=== PATIENT | male | born 1965 | race Caucasian/White ===

== ENCOUNTER 2018-07-06 06:36 | Emergency (ER) | payer SELFPAY ==
[~2018-07-06] VITALS: Ht 167.6 cm; Wt 64.3 kg
[2018-07-06 07:19] LABS: BASO # 0.1 x10^3/uL (0.0-0.2); BASO % 1 % (0-3); EOS # 0.1 x10^3/uL (0.0-0.7); EOS % 1 % (0-3); HEMATOCRIT 43.7 % (39.0-53.0); HEMOGLOBIN 15.6 g/dL (13.0-17.5); LYMPH # 2.3 x10^3/uL (1.0-4.8); LYMPH % 29 % (24-48); MEAN CORPUSCULAR HEMOGLOBIN 34 pg (25-35); MEAN CORPUSCULAR HGB CONC 36 g/dL (31-37); MEAN CORPUSCULAR VOLUME 96 fL (79-100); MONO # 0.5 x10^3/uL (0.0-1.1); MONO % 6 % (0-9); NEUT # 5.1 x10^3uL (1.8-7.7); NEUT % 64 % (31-73); PLATELET COUNT 119 x10^3/uL (140-400); RED BLOOD COUNT 4.56 x10^6/uL (4.30-5.70); RED CELL DISTRIBUTION WIDTH 12.1 % (11.5-14.5); WHITE BLOOD COUNT 8.1 x10^3/uL (4.0-11.0)
--- NOTE | 2018-07-06 07:32 | RAD ---
CT head without contrast TECHNIQUE: [address] imaging skull base to vertex. HISTORY: Numbness in left upper extremity. FINDINGS: No intracranial hemorrhage, mass, hydrocephalus, extra-axial fluid collections or infarction. No acute ischemic change. Orbits, paranasal sinuses, mastoids and bones are unremarkable. IMPRESSION: No acute intracranial CT abnormality. Exposure: One or more of the following individualized dose reduction techniques were utilized for this examination: 1. Automated exposure control 2. Adjustment of the mA and/or kV according to patient size 3. Use of iterative reconstruction technique Electronically signed by: Lb Guzman MD (07/06/2018 7:30 AM) [facility]
--- NOTE | 2018-07-06 07:42 | RAD ---
Chest, 2 views, 07/06/2018: HISTORY: Chest pain, left arm numbness The heart size and pulmonary vascularity are normal. No pulmonary infiltrate is seen. There is no evidence of pleural fluid. Old rib fractures are present in the left. IMPRESSION: No acute cardiopulmonary abnormality is detected. Electronically signed by: Naif Mercado MD (07/06/2018 7:39 AM) [facility]
[2018-07-06 07:45] LABS: ALBUMIN/GLOBULIN RATIO 1.2 (1.0-1.7); CALCIUM 8.9 mg/dL (8.5-10.1); CREATININE 0.9 mg/dL (0.7-1.3); GFR 88.3; MAGNESIUM 2.1 mg/dL (1.8-2.4); POTASSIUM 3.3 mmol/L (3.5-5.1); TOTAL BILIRUBIN 0.4 mg/dL (0.2-1.0); TOTAL PROTEIN 7.4 g/dL (6.4-8.2)
[2018-07-06] MEDS ORDERED: THIA100T8 PO (08:01)
--- NOTE | 2018-07-06 08:01 | PHYS DOC ---
Past History Past Medical History: No Pertinent History Past Surgical History: No Surgical History Smoking: Cigarettes, Less than 1pk/day Alcohol Use: Heavy Additional Alcohol Information: states he drinks several beers a day Drug Use: None Adult General Chief Complaint Chief Complaint: numbness of left arm [facility] HPI Patient is a 52-year-old male patient with complaining of left upper extremity numbness since he woke up at 7 AM today as a constant problem without weakness, headache, nausea and vomiting. Patient states he has had intermittent episodes of chest pain 3 days ago in left side of chest without radiation, shortness of breath, dizziness, palpitation, nausea and vomiting. Patient said the pain lasts about couple minutes and repeated several times but did not have any chest pain today. Review of Systems Review of Systems Constitutional: Denies fever or chills [] Eyes: Denies change in visual acuity, redness, or eye pain [] HENT: Denies nasal congestion or sore throat [] Respiratory: Denies cough or shortness of breath [] Cardiovascular: No additional information not addressed in HPI [] GI: Denies abdominal pain, nausea, vomiting, bloody stools or diarrhea [] : Denies dysuria or hematuria [] Musculoskeletal: Denies back pain or joint pain [] Integument: Denies rash or skin lesions [] Neurologic: Denies headache, focal weakness, reports sensory changes [] Endocrine: Denies polyuria or polydipsia [] All other systems were reviewed and found to be within normal limits, except as documented in this note. Allergies Allergies Allergies Coded Allergies Type Severity Reaction Last Updated Verified No Known Drug Allergies 07/06/18 No Physical Exam Physical Exam Constitutional: Well developed, well nourished, no acute distress, non-toxic appearance. [] HENT: Normocephalic, atraumatic, bilateral external ears normal, oropharynx moist, no oral exudates, nose normal. [] Eyes: PERRLA, EOMI, conjunctiva normal, no discharge. [] Neck: Normal range of motion, no tenderness, supple, no stridor. [] Cardiovascular:Heart rate regular rhythm, no murmur [] Lungs & Thorax: Bilateral breath sounds clear to auscultation [] Abdomen: Bowel sounds normal, soft, no tenderness, no masses, no pulsatile masses. [] Skin: Warm, dry, no erythema, no rash. [] Back: No tenderness, no CVA tenderness. [] Extremities: No tenderness, no cyanosis, no clubbing, ROM intact, no edema. [] Neurologic: Alert and oriented X 3, normal motor function, normal sensory function, no focal deficits noted, no paresthesia and evaluation. [] Psychologic: Affect normal, judgement normal, mood normal. [] Current Patient Data Vital Signs Vital Signs Date Time Temp Pulse Resp B/P (MAP) Pulse Ox O2 Delivery O2 Flow Rate FiO2 07/06/18 07:17 91 20 164/95 (118) 97 Room Air 07/06/18 06:45 98.5 Lab Results Laboratory Tests Test 07/06/18 07:00 White Blood Count 8.1 x10^3/uL (4.0-11.0) Red Blood Count 4.56 x10^6/uL (4.30-5.70) Hemoglobin 15.6 g/dL (13.0-17.5) Hematocrit 43.7 % (39.0-53.0) Mean Corpuscular Volume 96 fL (79-100) Mean Corpuscular Hemoglobin 34 pg (25-35) Mean Corpuscular Hemoglobin Concent 36 g/dL (31-37) Red Cell Distribution Width 12.1 % (11.5-14.5) Platelet Count 119 x10^3/uL (140-400) L Neutrophils (%) (Auto) 64 % (31-73) Lymphocytes (%) (Auto) 29 % (24-48) Monocytes (%) (Auto) 6 % (0-9) Eosinophils (%) (Auto) 1 % (0-3) Basophils (%) (Auto) 1 % (0-3) Neutrophils # (Auto) 5.1 x10^3uL (1.8-7.7) Lymphocytes # (Auto) 2.3 x10^3/uL (1.0-4.8) Monocytes # (Auto) 0.5 x10^3/uL (0.0-1.1) Eosinophils # (Auto) 0.1 x10^3/uL (0.0-0.7) Basophils # (Auto) 0.1 x10^3/uL (0.0-0.2) Sodium Level 144 mmol/L (136-145) Potassium Level 3.3 mmol/L (3.5-5.1) L Chloride Level 105 mmol/L (98-107) Carbon Dioxide Level 25 mmol/L (21-32) Anion Gap 14 (6-14) Blood Urea Nitrogen 9 mg/dL (8-26) Creatinine 0.9 mg/dL (0.7-1.3) Estimated GFR (Cockcroft-Gault) 88.3 BUN/Creatinine Ratio 10 (6-20) Glucose Level 95 mg/dL (70-99) Calcium Level 8.9 mg/dL (8.5-10.1) Magnesium Level 2.1 mg/dL (1.8-2.4) Total Bilirubin 0.4 mg/dL (0.2-1.0) Aspartate Amino Transferase (AST) 20 U/L (15-37) Alanine Aminotransferase (ALT) 26 U/L (16-63) Alkaline Phosphatase 82 U/L (46-116) Creatine Kinase 138 U/L (39-308) Creatine Kinase MB (Mass) 1.0 ng/mL (0.0-3.6) Creatine Kinase MB Relative Index 0.7 % (0-4) Troponin I Quantitative < 0.017 ng/mL (0-0.055) DZ-Oux-V-Type Natriuretic Peptide 56 pg/mL (0-124) Total Protein 7.4 g/dL (6.4-8.2) Albumin 4.0 g/dL (3.4-5.0) Albumin/Globulin Ratio 1.2 (1.0-1.7) Lipase 101 U/L (73-393) Ethyl Alcohol Level 57 mg/dL (0-10) H EKG EKG EKG interpreted by me. EKG at 0 649 showed that his tachycardia at rate of 103, incomplete right bundle branch block, poor R-wave progress in anteroseptal leads , no acute ST and T-wave abnormalities Radiology/Procedures Radiology/Procedures [IMAGING REPORT Signed PATIENT: GERARD CHENG ACCOUNT: [id number] : 1965 LOCATION: ER AGE: 52 SEX: M EXAM STATUS: REG ER ORD. PHYSICIAN: ESTRELLA KOCH MD REASON: numbness and chest pain PROCEDURE: CT HEAD WO CONTRAST CT head without contrast TECHNIQUE: [address] imaging skull base to vertex. HISTORY: Numbness in left upper extremity. FINDINGS: No intracranial hemorrhage, mass, hydrocephalus, extra-axial fluid collections or infarction. No acute ischemic change. Orbits, paranasal sinuses, mastoids and bones are unremarkable. IMPRESSION: No acute intracranial CT abnormality. Exposure: One or more of the following individualized dose reduction techniques were utilized for this examination: 1. Automated exposure control 2. Adjustment of the mA and/or kV according to patient size 3. Use of iterative reconstruction technique Electronically signed by: Anu Guzman MD (07/06/2018 7:30 AM) [facility] DICTATED AND SIGNED BY: ANU GUZMAN MD DATE: 07/06/18 07 CC: ESTRELLA KOCH MD; PCP,NO ~ ] Course & Med Decision Making Course & Med Decision Making Pertinent Labs and Imaging studies reviewed. (See chart for details) Evaluation of patient in ER showed 51-year-old male patient with complaining of left upper extremity numbness with NIHS of 0. Patient had episode of chest pain the last 2 days and had unremarkable EKG and labs. Patient psychiatric to follow up with his primary care physician and quit drinking alcohol. Prescription for thiamine was given. [] Dragon Disclaimer Dragon Disclaimer This electronic medical record was generated, in whole or in part, using a voice recognition dictation system. Departure Departure: Impression: Primary Impression: Paresthesias Additional Impressions: Hypokalemia Alcohol abuse Tobacco abuse Tobacco abuse counseling Disposition: 01 HOME, SELF-CARE (at [id number]) Condition: STABLE Referrals: PCP,NO (PCP) Patient Instructions: Alcohol Problems, Hypokalemia, Paresthesia, Smoking Cessation, Tips For Success Additional Instructions: Drink plenty of liquids Follow-up with your primary care physician in 3-5 days Return to ER if not getting better Scripts Thiamine Hcl (THIAMINE HCL) 100 Mg Tablet 100 MG PO DAILY, #30 TAB Prov: ESTRELLA KOCH MD 07/06/18 Problem Qualifiers ESTRELLA KOCH MD Jul 06, 2018 08:01
[2018-07-06 08:05] VITALS: BP 158/96
--- NOTE | 2018-07-06 17:33 | EKG ---
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
== END 2018-07-06 08:05 | disposition home or self-care (01) ==
LOC: ER 06:36
DX: E87.6 Hypokalemia (principal); R20.2 Paresthesia of skin; F17.210 Nicotine dependence, cigarettes, uncomplicated; F10.20 Alcohol dependence, uncomplicated; Z71.6 Tobacco abuse counseling; Y90.9 Presence of alcohol in blood, level not specified
CPT/HCPCS: 36415; 70450; 71046; 80053; 82553; 83690; 83735; 83880; 84484; 85025; 93005; 99285; G0480